=== PATIENT | male | born 1940 | race Caucasian/White ===

== ENCOUNTER 2016-10-10 19:43 | Emergency (ER) | payer MEDICARE, OTHER ==
[2016-10-10 19:44] VITALS: O2SAT 97
[2016-10-10 21:32] VITALS: BP 156/82; PULSE 82; RESP 18; TEMP 97
[2016-10-10] MEDS ORDERED: APAP/HYDROCODONE 325/7.5 TAB PO PRN (21:40)
[2016-10-10] MEDS ORDERED: APAP/HYDROCODONE 325/5 TAB PO ONE (21:50)
[2016-10-10] MEDS ORDERED: APAP/HYDROCODONE 325/5 TAB ONE (21:51)
== END 2016-10-11 02:00 | disposition home or self-care (01) | DRG 950 ==
LOC: ED 19:43
DX: S70.11XD Contusion of right thigh, subsequent encounter (principal); Z79.01 Long term (current) use of anticoagulants; W19.XXXD Unspecified fall, subsequent encounter
CPT/HCPCS: 99282

== ENCOUNTER 2018-12-21 08:26 | Day surgery (SDC) | payer MEDICARE, OTHER ==
[2018-12-21] MEDS ORDERED: GLYCOPYRROLATE 0.2 MG/ML SOL ONE (10:08)
[2018-12-21] MEDS ORDERED: PROPOFOL 500 MG/50 ML EMU IV ONE ×2 (10:09)
[2018-12-21] MEDS ORDERED: LIDOCAINE HCL 1% MPF 30 SOL ONE (10:09)
[2018-12-21 10:48] VITALS: BP 140/81; PULSE 80; RESP 16; TEMP 97.4; O2SAT 95
== END 2018-12-21 11:10 | disposition home or self-care (01) | DRG 951 ==
LOC: SURG 08:26
PROVIDERS: ATTEND Surgery
DX: Z12.11 Encounter for screening for malignant neoplasm of colon (principal); K57.32 Diverticulitis of large intestine without perforation or abscess without bleeding; E11.9 Type 2 diabetes mellitus without complications; Z86.010 Personal history of colon polyps; D12.6 Benign neoplasm of colon, unspecified; D12.3 Benign neoplasm of transverse colon
CPT/HCPCS: 82962; J7643; J2001; J2704